=== PATIENT | female | born 1950 | race Caucasian/White ===

== ENCOUNTER 2018-04-22 21:02 | Inpatient (IN) ==
[2018-04-22] MEDS ORDERED: *HR* OxyCODONE Immed Rel 5 MG TABLET PO ONE (21:36)
--- NOTE | 2018-04-22 21:53 | Emergency Department Note ---
Disposition Clinical Impression: Tibia fracture, HLD (hyperlipidemia), DMII (diabetes mellitus, type 2) Disposition: Admitted As Inpatient Condition: Good Referrals: Markel Ordonez MD [Primary Care Provider] - Forms: ED Satisfaction Letter Time of Disposition: 22:00 Lower Extremity Injury HPI - General Chief Complaint: ED Extremity Injury, Lower Stated Complaint: Left lower leg pain onset Thursday Time Seen by Provider: 04/22/18 21:05 Source: patient, family, EMS Mode of arrival: wheelchair Limitations: altered mental status Nursing Notes Reviewed: Yes Vital Signs Reviewed: Yes - History of Present Illness HPI Narrative: 68-year-old female who presents to the emergency room who was recently hospitalized on Thursday through Thursday afternoon at [facility] after having tripped and fallen and fracturing her tibia who presents back to the emergency room unable to control pain and due to her altered mental status which is secondary to Alzheimer's dementia is unable to understand management and treatment of the fracture family's been unable to control her pain with the use of Tylenol as result she now presents back here to the emergency room nurse's notes have been reviewed with further assistance though the patient does not understand why she is here to Hospital asked if she knew where she had a immobilizer on her leg which was a long leg splint she said no she was unclear of what Lemuel occurred in the past couple of days Family tells me that since she has been home she has been crying out in pain she will not leave the long leg splint on and ambulate despite the splint she has no understanding for the use of medical assist devices such the walker wheelchair or crutches they state that she is unable to even truly bear weight on her good leg her balance is completely off as a result they have brought her to the emergency room for further evaluation and possible hospitalization Pt Subjective Complaint: leg injury Injury location: Left Leg (Tibia fracture) Onset (ago): day(s) (5) Mechanism of Injury: fall Context: fall Place: home Pain Severity: severe Improves with: nothing Worsens with: weight bearing, movement, palpation Associated symptoms: Reports: unable to bear weight - Related Data Home Medications Medication Instructions Recorded Confirmed metFORMIN [Glucophage] 500 mg PO DAILY 04/19/18 04/19/18 Previous Rx's Medication Instructions Recorded Aspirin 81 mg PO DAILY #90 tab.chew 09/19/16 Atorvastatin [Lipitor] 40 mg PO HS #30 tablet 06/02/16 Isosorbide MONOnitrate (24 HR) 60 mg PO DAILY #60 tab.er.24h 06/02/16 [Imdur] Nitroglycerin 0.4 mg SL Q5MIN PRN #15 tab.subl 06/02/16 hydrALAZINE [HydrALAZINE] 25 mg PO Q6HR #90 tablet 06/02/16 Clopidogrel [Plavix] 75 mg PO DAILY #30 tablet 10/16/17 Furosemide [Lasix] 20 mg PO DAILY #30 tablet 10/16/17 Metoprolol XL (24 HR) Succ [Toprol 25 mg PO DAILY #30 tab.er.24h 10/16/17 Xl] Levothyroxine [Synthroid] 50 mcg PO 0630 #60 tablet 01/15/18 Acetaminophen [Tylenol] 650 mg PO Q6HR PRN 7 Days #56 04/21/18 tablet Ascorbic Acid [Vitamin C] 500 mg PO TIDWM 7 Days #21 tablet 04/21/18 Cholecalciferol (D-3) [Vitamin D] 1,000 unit PO DAILY 7 Days #7 04/21/18 tablet Ferrous Sulfate 325 mg PO TIDWM 7 Days #21 tablet 04/21/18 Folic Acid 1 mg PO DAILY 7 Days #7 tablet 04/21/18 Lisinopril [Zestril] 20 mg PO DAILY 7 Days #7 tablet 04/21/18 Allergies Allergy/AdvReac Type Severity Reaction Status Date / Time No Known Allergies Allergy Verified 01/05/18 16:07 All systems ED: reviewed and negative except as stated. Review of Systems: As Per HPI Constitutional: Denies: fever Eyes: Denies: eye pain ENT ED: Denies: ear pain Cardiovascular: Denies: chest pain Respiratory: Denies: cough Gastrointestinal: Denies: abdominal pain Genitourinary: Denies: urgency, dysuria Musculoskeletal: Reports: arthralgia, myalgia. Denies: back pain, neck pain Integumentary: Denies: rash Neurological: Denies: headache Psychiatric: Denies: anxiety Endocrine: Denies: fatigue Hematological/Lymphatic: Denies: easy bleeding Allergic/Immunologic: Denies: facial swelling Past Medical History - Past Medical History Attestation: Yes The following information was validated with the patient. Source: unable to obtain, old records reviewed, obtained from family, nursing notes reviewed Medical history: Reports: aortic aneurysm, dementia, diabetes, GERD, hypertension, osteoporosis, other Surgical history: Reports: cholecystectomy Psychiatric history: Reports: no psych history - Social History Smoking Status: Never smoker Smokeless Tobacco Status: No Alcohol use: Reports: none Drug use: Reports: none Physical Exam - General Limitations: altered mental status General appearance: alert, in no apparent distress, anxious, other (Difficult to console difficult to get her to calm down and not move about the bed to play with the splint continually unwrapping the Jae wrap despite extensive tape job which was applied prior to arrival to the ER) - Head Head exam: atraumatic, normocephalic, normal inspection - Eye Eye exam: Present: normal appearance, PERRL, EOMI - ENT ENT exam: normal exam, normal oropharynx, mucous membranes moist, TM's normal bilaterally, normal external ear exam - Neck Neck exam: Present: normal inspection, full ROM, trachea midline - Chest Chest inspection: Present: normal inspection, symmetric chest wall rise - Respiratory Respiratory exam: Present: normal lung sounds bilaterally - Cardiovascular Cardiovascular exam: Present: regular rate, normal rhythm, normal heart sounds - Abdominal Exam Abdominal exam: Present: soft, Non-Tender, normal bowel sounds. Absent: mass, pulsatile mass - Expanded Upper Extremity Exam Shoulder exam: Present: normal inspection, full ROM Arm exam: Present: normal inspection, full ROM Elbow exam: Present: normal inspection, full ROM Forearm/Wrist exam: Present: normal inspection, full ROM Hand exam: Present: normal inspection, full ROM Vascular exam: Normal: capillary refill, radial pulse - Expanded Lower Extremity Exam Hip/Pelvis exam: Present: normal inspection, full ROM Upper leg exam: Present: normal inspection, full ROM Knee exam: Present: normal inspection, full ROM Lower leg exam: Present: tenderness, swelling, ecchymosis, other (Left lower extremity bruising ecchymosis noted about the knee painful with palpation about the knee strong dorsal pedal posterior tibial popliteal pulse sensory intact to light touch has a hard time understanding 2 point discrimination) Ankle exam: Present: normal inspection, full ROM Foot/toe exam: Present: normal inspection, full ROM Neurovascular/Tendon exam: Present: normal capillary refill, normal fine/light touch. Absent: pulse deficit Gait: unable to bear weight - Back Exam Back exam: Present: normal inspection, full ROM. Absent: muscle spasm Back 1 view image: 1 - Decubitus breakdown stage II - Neurological Exam Neurological exam: Present: alert, oriented X3, CN II-XII intact, normal gait - Psychiatric Psychiatric exam: Present: normal affect, normal mood - Skin Skin exam: Present: warm, dry, intact, normal color Course Course Narrative: Patient was immediately seen and examined patient is unable understand completely even what is going on she does not understand modalities to help assist she does not have an understanding of what is occurred to her even with that him to use assist device that she completely has no clear understanding this as result with her failing outpatient therapy with straight significantly benefit from a 2 day hospitalization with admission for then to a rehabilitation or a swing bed type facility till she has no understanding of or stabilization of the fracture of the knee may ultimately need surgical repair to be evaluated tomorrow by orthopedics as result patient will be admitted to the services of Dr. Ortiz as an inpatient needing at least a 2 day hospitalization with physical therapy occupational therapy orthopedics attempting to teach other modalities to help stabilize with most likely needing a swing bed jail placement - Reevaluation(s) Reevaluation #1: Patient have physical therapy occupational therapy ordered for her in addition she has orthopedic appointment tomorrow with [facility] we will have to call and confirm and her family physician is Dr. Ordonez not physician listed as of record Vital Signs Temperature 97.7 F 04/22/18 21:05 Pulse Rate 87 04/22/18 21:05 Respiratory Rate 16 04/22/18 21:05 Blood Pressure 173/99 04/22/18 21:05 O2 Sat by Pulse Oximetry 98 04/22/18 21:05 Temperature 97.7 F 04/22/18 21:05 Pulse Rate 87 04/22/18 21:05 Respiratory Rate 16 04/22/18 21:05 Blood Pressure 173/99 04/22/18 21:05 O2 Sat by Pulse Oximetry 98 04/22/18 21:05 Oxygen Delivery Oxygen Delivery Room Air Procedures - Orthopedic Splinting/Casting Injury #1 Side: left Lower Extremity Injury Location: knee Lower Extremity Immobilizer: knee immobilizer Additional Comments: Neurovascular intact after splint applied by nursing staff Extremity Injury, Lower - Differential Diagnosis Likely: fracture - Medical Records Medical records reviewed: Yes I reviewed the patient's medical records. - Lab Data Lab results reviewed: Yes I reviewed the patient's lab results. Result diagrams: 04/22/18 22:04 Lab Results 04/22/18 04/22/18 Range/Units 22:04 22:04 WBC 7.9 (4.3-11.1) K/mcL RBC 3.04 L (3.82-4.97) M/mcL Hgb 9.3 L (11.5-15.4) g/dL Hct 27.7 L (35.3-44.9) % MCV 91.1 (83.0-100.0) fL MCH 30.6 (28.0-33.3) pg MCHC 33.6 (31.6-35.5) g/dL RDW 15.1 H (11.5-14.5) % Plt Count 218 (140-400) K/mcL MPV 9.7 (9.4-12.4) fL Immature Gran % 0.4 (0-4) % Seg Neutrophils % 77.7 % Lymphocytes % 11.4 % Monocytes % 8.9 % Eosinophils % 1.3 % Basophils % 0.3 % Neutrophils # 6.1 (1.6-8.9) K/mcL Lymphocytes # 0.9 (0.6-4.6) K/mcL Monocytes # 0.7 (0.0-1.3) K/mcL Eosinophils # 0.1 (0.0-0.6) K/mcL Basophils # 0.0 (0.0-0.2) K/mcL PT 10.3 (9.4-12.1) Seconds INR 0.9
[2018-04-22 22:10] LABS: Basophils % 0.3 %; Eosinophils # 0.1 K/mcL (0.0-0.6); Eosinophils % 1.3 %; Hematocrit 27.7 % (35.3-44.9); Hemoglobin 9.3 g/dL (11.5-15.4); Immature Granulocytes % 0.4 % (0-4); Lymphocytes # 0.9 K/mcL (0.6-4.6); Lymphocytes % 11.4 %; Mean Corpuscular HGB Conc 33.6 g/dL (31.6-35.5); Mean Corpuscular Hemoglobin 30.6 pg (28.0-33.3); Mean Corpuscular Volume 91.1 fL (83.0-100.0); Mean Platelet Volume 9.7 fL (9.4-12.4); Monocytes # 0.7 K/mcL (0.0-1.3); Monocytes % 8.9 %; Neutrophils # 6.1 K/mcL (1.6-8.9); Platelet Count 218 K/mcL (140-400); Red Blood Count 3.04 M/mcL (3.82-4.97); Red Cell Distribution Width 15.1 % (11.5-14.5); Segmented Neutrophils % 77.7 %
[2018-04-22 22:17] LABS: INR 0.9; Prothrombin Time 10.3 Seconds (9.4-12.1)
[2018-04-22 22:20] LABS: Activated Partial Thrombo Time 33.5 Seconds (26.0-36.0)
[2018-04-22 22:27] LABS: Albumin 3.1 g/dL (3.5-5.7); Albumin/Globulin Ratio 1.1 (1.1-2.2); Bilirubin,Total 0.5 mg/dL (0.3-1.0); Calcium 8.6 mg/dL (8.6-10.3); Globulin 2.8 g/dL (2.4-3.5); Total Protein 5.9 g/dL (6.4-8.9)
[2018-04-22] MEDS ORDERED: Dextrose Gel 15 GM/37.5 ML TUBE PO PRN ×2 (23:52)
[2018-04-22] MEDS ORDERED: D5% in Water 1,000 ML IVC PRN (23:52)
[2018-04-22] MEDS ORDERED: Naloxone 0.4 MG/ML INJ IVP PRN (23:52)
[2018-04-22] MEDS ORDERED: *HR* Dextrose 50 % in Water (Syg) 50 ML SYRINGE IVP PRN (23:52)
[2018-04-22] MEDS ORDERED: Nitroglycerin 0.4 MG TAB.SUBL SL PRN (23:52)
[2018-04-23] MEDS: Acetaminophen 325 MG TABLET PO PRN ×2 (02:22→11:14)
[2018-04-23] MEDS: *HR* OxyCODONE Immed Rel 5 MG TABLET PO PRN ×3 (02:22→17:27)
[2018-04-23] MEDS: hydrALAZINE 25 MG TABLET PO SCH ×4 (02:25→17:26)
[2018-04-23] MEDS: ALPRAZolam 0.5 MG TABLET PO PRN ×4 (03:17→22:02)
[2018-04-23] MEDS: Levothyroxine 25 MCG TABLET PO SCH (06:42)
[2018-04-23] MEDS ORDERED: *HR* Metformin 500 MG TABLET PO SCH (08:00)
[2018-04-23] MEDS: Insulin LISPRO 300 UNITS/3 ML VIAL SQ SCH ×3 (08:51→17:50)
[2018-04-23] MEDS ORDERED: Metoprolol XL (24 HR) Succ 25 MG TAB.ER.24H PO SCH (09:00)
--- NOTE | 2018-04-23 11:03 | Internal Med History&Physical ---
Date of Encounter: 04/23/18 Internal Medicine - H&P: HPI History of present illness: Ms. Doss is a 68 year old female Past Med Surg Social Fam HX - Past Medical History Medical history: aortic aneurysm, dementia, diabetes, GERD, hypertension, osteoporosis, other Psychiatric history: no psych history - Past Surgical History Surgical History: cholecystectomy, coronary bypass (CABG) Additional surgical history: PT CONFUSED UNABLE TO GET CURRENT INFORMATION, INFO GATHERED FROM PAST MEDICAL RECORDS. - Social History Smoking Status: Never smoker Smokeless Tobacco Status: No Alcohol use: none Drug use: none Internal Medicine - H&P: Meds Aspirin 81 mg PO DAILY #90 tab.chew 06/02/16 [Rx] Atorvastatin [Lipitor] 40 mg PO HS #30 tablet 06/02/16 [Rx] Isosorbide MONOnitrate (24 HR) [Imdur] 60 mg PO DAILY #60 tab.er.24h 06/02/16 [ Rx] Nitroglycerin 0.4 mg SL Q5MIN PRN #15 tab.subl 06/02/16 [Rx] hydrALAZINE [HydrALAZINE] 25 mg PO Q6HR #90 tablet 06/02/16 [Rx] Clopidogrel [Plavix] 75 mg PO DAILY #30 tablet 10/16/17 [Rx] Furosemide [Lasix] 20 mg PO DAILY #30 tablet 10/16/17 [Rx] Metoprolol XL (24 HR) Succ [Toprol Xl] 25 mg PO DAILY #30 tab.er.24h 10/16/17 [ Rx] Levothyroxine [Synthroid] 50 mcg PO 0630 #60 tablet 01/15/18 [Rx] metFORMIN [Glucophage] 500 mg PO DAILY 04/19/18 [History] Acetaminophen [Tylenol] 650 mg PO Q6HR PRN 7 Days #56 tablet 04/21/18 [Rx] Ascorbic Acid [Vitamin C] 500 mg PO TIDWM 7 Days #21 tablet 04/21/18 [Rx] Cholecalciferol (D-3) [Vitamin D] 1,000 unit PO DAILY 7 Days #7 tablet 04/21/18 [Rx] Ferrous Sulfate 325 mg PO TIDWM 7 Days #21 tablet 04/21/18 [Rx] Folic Acid 1 mg PO DAILY 7 Days #7 tablet 04/21/18 [Rx] Lisinopril [Zestril] 20 mg PO DAILY 7 Days #7 tablet 04/21/18 [Rx] 3 Allergy/AdvReac Type Severity Reaction Status Date / Time No Known Allergies Allergy Verified 04/22/18 22:47 All Systems PM: A 10-system review of systems was performed and is negative for pertinent findings except as documented above in the HPI. - Constitutional Vitals: Temp Pulse Resp BP Pulse Ox 98.3 F 68 18 148/75 98 04/23/18 07:51 04/23/18 07:51 04/23/18 07:51 04/23/18 07:51 04/23/18 07:51 Internal Med - H&P Results - Labs CBC & Chem 7: 04/22/18 22:04 04/22/18 22:04
[2018-04-23] MEDS: Lisinopril 20 MG TABLET PO SCH (11:07)
[2018-04-23] MEDS: Isosorbide MONOnitrate (24 HR) 60 MG TAB.ER.24H PO SCH (11:07)
[2018-04-23] MEDS: Furosemide 20 MG TABLET PO SCH (11:07)
[2018-04-23] MEDS: Cholecalciferol (D-3) 1,000 UNIT TABLET PO SCH (11:08)
[2018-04-23] MEDS: Ascorbic Acid 500 MG TABLET PO SCH ×2 (11:08→18:37)
[2018-04-23] MEDS: Folic Acid 1 MG TABLET PO SCH (11:08)
[2018-04-23] MEDS: Aspirin 81 MG TAB.CHEW PO SCH (11:08)
--- NOTE | 2018-04-23 11:20 | Internal Med History&Physical ---
Date of Encounter: 04/23/18 Time of Encounter: 10:40 Assessment and Plan (1) Tibia/fibula fracture Current visit: Yes Status: Acute Ortho recommended nonoperative treatment with NWB status. Pain has not been adequately controlled. She will see Ortho today for probable cast placement since she has dementia and removed the initial splint/immobilizer. She will be given scheduled analgesics with prn medication available also. She will need an additional 2-3 days in the hospital for medical stabilization. Qualifiers: Encounter type: subsequent encounter Fracture type: closed Laterality: left Fracture healing: with routine healing Qualified Code(s): S82.202D - Unspecified fracture of shaft of left tibia, subsequent encounter for closed fracture with routine healing; S82.402D - Unspecified fracture of shaft of left fibula, subsequent encounter for closed fracture with routine healing (2) Dementia Current visit: No Status: Chronic Advanced with very poor insight and judgment. B12 level was low and TSH level elevated on last check. Will give B12 injection and start oral supplement. Recheck TSH in a.m. Qualifiers: Dementia type: Alzheimer's disease Alzheimer's disease onset: unspecified onset Dementia behavioral disturbance: without behavioral disturbance Qualified Code(s): G30.9 - Alzheimer's disease, unspecified; F02.80 - Dementia in other diseases classified elsewhere without behavioral disturbance (3) CKD (chronic kidney disease) Current visit: No Status: Chronic Creatinine has risen significantly from 1.79 on 04/18/2018 to 2.38 today. IV fluids will be started and medication adjustments will be made. Qualifiers: Chronic kidney disease stage: stage 3 (moderate) Qualified Code(s): N18.3 - Chronic kidney disease, stage 3 (moderate) (4) DMII (diabetes mellitus, type 2) Current visit: Yes Status: Chronic Hemoglobin A1c was elevated at 10.8% on 01/18/2018. Recheck in a.m. Discontinue Glucophage because of renal failure. Qualifiers: Diabetes mellitus roasterman insulin use: without custodial use Diabetes mellitus complication status: with kidney complications Diabetes mellitus complication detail: with chronic kidney disease Chronic kidney disease stage : stage 4 (severe) Qualified Code(s): E11.22 - Type 2 diabetes mellitus with diabetic chronic kidney disease; N18.4 - Chronic kidney disease, stage 4 (severe ) (5) Hypothyroidism Current visit: No Status: Chronic Recheck TSH in a.m. Qualifiers: Hypothyroidism type: unspecified Qualified Code(s): E03.9 - Hypothyroidism , unspecified (6) Anemia Current visit: No Status: Acute Possibly multifactorial etiology. Anemia testing 04/19/2018 showed iron 20, transferrin saturation 7%, transferrin 206, and B12 212. Folate was normal at 10.50 on 01/12/2018. Will give B12 injection start oral supplement. Check ferritin level in a.m. Continue DAPT since she had cardiac stents earlier this year. Qualifiers: Anemia type: unspecified type Qualified Code(s): D64.9 - Anemia, unspecified (7) Congestive heart failure (CHF) Current visit: No Status: Chronic BN peptide was 1319 on 01/18/2018. Recheck in a.m. and adjust medications as needed. Qualifiers: Heart failure type: combined systolic and diastolic Heart failure chronicity: acute on chronic Qualified Code(s): I50.43 - Acute on chronic combined systolic (congestive) and diastolic (congestive) heart failure (8) Hypertension Current visit: No Status: Chronic Blood pressure shows significant variability but frequently is inadequately controlled. Adjust medications and continue to monitor. Qualifiers: Hypertension type: essential hypertension Qualified Code(s): I10 - Essential (primary) hypertension Internal Medicine - H&P: HPI Chief complaint: Left leg pain Admitted From: Emergency Dept Plans for Post Hospital Care: Home History of present illness: Ms. Doss is a 68 year old female who was hospitalized at [facility] April 17- in observation status following a fall and sustaining a left tib-fib fracture. Orthopedics recommended nonoperative management and she was made NWB with a leg split placed. She was discharged home with Tylenol prescribed for pain. She could not function satisfactorily at home because of advanced dementia and limited available caregivers. Her pain was was significant and not adequately controlled at home which limited mobility. She was evaluated in emergency room and found to have ecchymosis and persistent slight swelling of the left knee. Hemoglobin had decreased slightly from [facility] discharge and creatinine had risen. She was admitted to Medr floor for ongoing care needs. She has dementia and cannot give any additional history. Review of available records show orthopedic history significant for osteoporosis but no documented gallops or other bone joint or muscle disorders. Past Med Surg Social Fam HX - Past Medical History Medical history: aortic aneurysm, dementia, diabetes, GERD, hypertension, osteoporosis, other Psychiatric history: no psych history - Past Surgical History Surgical History: cholecystectomy, coronary bypass (CABG) Additional surgical history: PT CONFUSED UNABLE TO GET CURRENT INFORMATION, INFO GATHERED FROM PAST MEDICAL RECORDS. - Social History Smoking Status: Never smoker Smokeless Tobacco Status: No Alcohol use: none Drug use: none Internal Medicine - H&P: Meds Aspirin 81 mg PO DAILY #90 tab.chew 06/02/16 [Rx] Atorvastatin [Lipitor] 40 mg PO HS #30 tablet 06/02/16 [Rx] Isosorbide MONOnitrate (24 HR) [Imdur] 60 mg PO DAILY #60 tab.er.24h 06/02/16 [ Rx] Nitroglycerin 0.4 mg SL Q5MIN PRN #15 tab.subl 06/02/16 [Rx] hydrALAZINE [HydrALAZINE] 25 mg PO Q6HR #90 tablet 06/02/16 [Rx] Clopidogrel [Plavix] 75 mg PO DAILY #30 tablet 10/16/17 [Rx] Furosemide [Lasix] 20 mg PO DAILY #30 tablet 10/16/17 [Rx] Metoprolol XL (24 HR) Succ [Toprol Xl] 25 mg PO DAILY #30 tab.er.24h 10/16/17 [ Rx] Levothyroxine [Synthroid] 50 mcg PO 0630 #60 tablet 01/15/18 [Rx] metFORMIN [Glucophage] 500 mg PO DAILY 04/19/18 [History] Acetaminophen [Tylenol] 650 mg PO Q6HR PRN 7 Days #56 tablet 04/21/18 [Rx] Ascorbic Acid [Vitamin C] 500 mg PO TIDWM 7 Days #21 tablet 04/21/18 [Rx] Cholecalciferol (D-3) [Vitamin D] 1,000 unit PO DAILY 7 Days #7 tablet 04/21/18 [Rx] Ferrous Sulfate 325 mg PO TIDWM 7 Days #21 tablet 04/21/18 [Rx] Folic Acid 1 mg PO DAILY 7 Days #7 tablet 04/21/18 [Rx] Lisinopril [Zestril] 20 mg PO DAILY 7 Days #7 tablet 04/21/18 [Rx] 3 Allergy/AdvReac Type Severity Reaction Status Date / Time No Known Allergies Allergy Verified 04/22/18 22:47 All Systems PM: A 10-system review of systems was performed and is negative for pertinent findings except as documented above in the HPI. Review of systems: Gen.: Her recorded weights are of questionable accuracy. On 10/16/2017 it was recorded at 68.3 kg. On 04/17/2018 it was recorded at 80.7 319 kg, 04/22/2018 recorded at 68.039 kg, and weight today 59.562 kilograms. Cardiovascular: She has history of hypertension and aortic aneurysm not otherwise specified. Echocardiogram September 2017 showed LVEF of 25-30% with previous LVEF 60% May 2016. Heart catheter 10/10/2017 showed severe 2 vessel disease with Lilia placed in the proximal diagonal 1 and mid LAD. The LMCA, circumflex, first marginal, RCA, and right PDA were angiographically free of disease. Follow-up echocardiogram 01/06/2018 showed LVEF slightly improved to 30-35%. There is no known history of DVT or pulmonary embolus. Respiratory: Patient denies being a smoker and no chronic lung disease is documented. GI: She has GERD. Chart reports history cholecystectomy. There is no history of disorders of liver or exocrine pancreas : She has chronic kidney disease that is now stage IV. She has right renal cyst per CT scan of 10/10/2017 which measures 7.2 cm. Neurologic: She has advanced dementia. No large distribution strokes were seen on CT scan 10/10/2017. There is no reported history of seizures. Endocrine: She has DM 2 duration unknown. She has hyperkalemia and hypothyroidism. Hematology/oncology: She has anemia with anemia testing 04/19/2018 showing iron 20, transferrin saturation 7%, transferrin 207, B12 212, and folate previously unremarkable at 10.5 on 01/12/2018. No history malignancies reported. Psychiatric: There is no history of anxiety depression or other mental health issues. [place] skeletal: As per history of present illness - Constitutional Vitals: Temp Pulse Resp BP Pulse Ox 98.3 F 68 18 148/75 98 04/23/18 07:51 04/23/18 07:51 04/23/18 07:51 04/23/18 07:51 04/23/18 07:51 Exam: Gen.: She is well-developed well-nourished female resting in bed who appears in significant pain on movement of her left leg. HEENT: Head is atraumatic and normocephalic. Eyes: EOMI. There is no scleral icterus. Mouth: Mucosa is moist. Neck: Supple and nontender. There is no thyromegaly or adenopathy noted. Heart: Regular without murmurs gallops or ectopics Lungs: No wheezes or crackles are heard. Abdomen: Soft and nontender. No masses or guarding are noted. Extremities: She has significant ecchymosis and slight swelling of the left knee area. There is significant pain on any movement of the leg. There is no cyanosis edema or clubbing noted. Dorsalis pedis and posterior tibial pulses are trace palpable bilaterally. Neurologic: Mental status: She is very talkative and can state her name but does not know her age, date of , location, length of stay, or past medical history. Cranial nerves: Smile is symmetric. Forehead wrinkles bilaterally. Tongue protrudes midline. EOMI. Motor: There is no pronator drift. Cerebellar : Finger to nose is intact bilaterally. Skin: Warm and dry Internal Med - H&P Results - Labs CBC & Chem 7: 04/22/18 22:04 04/22/18 22:04
[2018-04-23] MEDS ORDERED: *HR* FentaNYL PATCH 12 MCG PATCH TD SCH (13:00)
[2018-04-23] MEDS ORDERED: Cyanocobalamin (B-12) 1,000 MCG/ML VIAL IM ONE (17:15)
[2018-04-23] MEDS: Cyanocobalamin (B-12) 1,000 MCG/ML VIAL IM ONE ×2 (17:24→18:38)
[2018-04-23] MEDS: Acetaminophen 325 MG TABLET PO SCH (17:26)
[2018-04-24] MEDS: hydrALAZINE 25 MG TABLET PO SCH ×4 (01:26→17:43)
[2018-04-24] MEDS: Acetaminophen 325 MG TABLET PO SCH ×4 (01:26→17:42)
[2018-04-24] MEDS: Levothyroxine 25 MCG TABLET PO SCH (06:38)
[2018-04-24 07:40] LABS: Basophils % 0.5 %; Eosinophils # 0.2 K/mcL (0.0-0.6); Eosinophils % 2.4 %; Hematocrit 25.8 % (35.3-44.9); Hemoglobin 8.5 g/dL (11.5-15.4); Immature Granulocytes % 0.2 % (0-4); Lymphocytes % 14.7 %; Mean Corpuscular HGB Conc 32.9 g/dL (31.6-35.5); Mean Corpuscular Hemoglobin 30.8 pg (28.0-33.3); Mean Corpuscular Volume 93.5 fL (83.0-100.0); Mean Platelet Volume 10.1 fL (9.4-12.4); Monocytes # 0.7 K/mcL (0.0-1.3); Monocytes % 10.1 %; Neutrophils # 4.8 K/mcL (1.6-8.9); Platelet Count 235 K/mcL (140-400); Red Blood Count 2.76 M/mcL (3.82-4.97); Red Cell Distribution Width 15.8 % (11.5-14.5); Segmented Neutrophils % 72.1 %
[2018-04-24 08:01] LABS: Calcium 8.1 mg/dL (8.6-10.3); Potassium 4.6 mEq/L (3.5-5.1)
[2018-04-24] MEDS: *HR* OxyCODONE Immed Rel 5 MG TABLET PO PRN ×3 (09:15→21:33)
[2018-04-24] MEDS: Furosemide 20 MG TABLET PO SCH (10:11)
[2018-04-24] MEDS: Cholecalciferol (D-3) 1,000 UNIT TABLET PO SCH (10:11)
[2018-04-24] MEDS: Cyanocobalamin (B-12) 1,000 MCG TABLET PO SCH (10:11)
[2018-04-24] MEDS: Isosorbide MONOnitrate (24 HR) 60 MG TAB.ER.24H PO SCH (10:11)
[2018-04-24] MEDS: Aspirin 81 MG TAB.CHEW PO SCH (10:11)
[2018-04-24] MEDS: Lisinopril 20 MG TABLET PO SCH (10:11)
[2018-04-24] MEDS: Ascorbic Acid 500 MG TABLET PO SCH (10:12)
[2018-04-24] MEDS: Insulin LISPRO 300 UNITS/3 ML VIAL SQ SCH ×3 (10:12→17:44)
[2018-04-24] MEDS: Folic Acid 1 MG TABLET PO SCH (10:12)
[2018-04-24] MEDS: Metoprolol XL (24 HR) Succ 50 MG TAB.ER.24H PO SCH (10:12)
[2018-04-24 10:17] LABS: Thyroid Stimulating Hormone 5.634 mcIU/mL (0.340-5.600)
--- NOTE | 2018-04-24 15:15 | Internal Med Progress Note ---
Date of Encounter: 04/24/18 Time of Encounter: 15:05 - Assessment and plan (1) Tibia/fibula fracture Current Visit: Yes Status: Acute Assessment and plan: April 24. She now has a long leg cast in place. Continue NWB status and analgesic regimen. Qualifiers: Encounter type: subsequent encounter Fracture type: closed Laterality: left Fracture healing: with routine healing Qualified Code(s): S82.202D - Unspecified fracture of shaft of left tibia, subsequent encounter for closed fracture with routine healing; S82.402D - Unspecified fracture of shaft of left fibula, subsequent encounter for closed fracture with routine healing (2) Dementia Current Visit: No Status: Chronic Assessment and plan: April 24. TSH minimally elevated 5.634. Will increase Synthroid to 75 g daily Qualifiers: Dementia type: Alzheimer's disease Alzheimer's disease onset: unspecified onset Dementia behavioral disturbance: without behavioral disturbance Qualified Code(s): G30.9 - Alzheimer's disease, unspecified; F02.80 - Dementia in other diseases classified elsewhere without behavioral disturbance (3) CKD (chronic kidney disease) Current Visit: No Status: Chronic Assessment and plan: April 24. Creatinine has risen to 2.53 with estimated GFR 19. I explained to patient's daughter she was now in stage IV renal failure. Qualifiers: Chronic kidney disease stage: stage 3 (moderate) Qualified Code(s): N18.3 - Chronic kidney disease, stage 3 (moderate) (4) DMII (diabetes mellitus, type 2) Current Visit: Yes Status: Chronic Assessment and plan: April 24. Hemoglobin A1c pending. Blood sugars overall satisfactory. Continue Accu-Cheks with SSI. Qualifiers: Diabetes mellitus assisted insulin use: without assisted use Diabetes mellitus complication status: with kidney complications Diabetes mellitus complication detail: with chronic kidney disease Chronic kidney disease stage : stage 4 (severe) Qualified Code(s): E11.22 - Type 2 diabetes mellitus with diabetic chronic kidney disease; N18.4 - Chronic kidney disease, stage 4 (severe ) (5) Hypothyroidism Current Visit: No Status: Chronic Assessment and plan: April 24. Increase Synthroid as above. Qualifiers: Hypothyroidism type: unspecified Qualified Code(s): E03.9 - Hypothyroidism , unspecified (6) Anemia Current Visit: No Status: Acute Assessment and plan: April 24. Ferritin level 78. Continue ferrous sulfate with vitamin C. Qualifiers: Anemia type: unspecified type Qualified Code(s): D64.9 - Anemia, unspecified (7) Congestive heart failure (CHF) Current Visit: No Status: Chronic Assessment and plan: April 24. BN peptide improved to 643. Continue Lasix, hydralazine, isosorbide , Zestril, and Toprol. Qualifiers: Heart failure type: combined systolic and diastolic Heart failure chronicity: acute on chronic Qualified Code(s): I50.43 - Acute on chronic combined systolic (congestive) and diastolic (congestive) heart failure (8) Hypertension Current Visit: No Status: Chronic Assessment and plan: April 24. Continue Toprol, Zestril, and hydralazine. Qualifiers: Hypertension type: essential hypertension Qualified Code(s): I10 - Essential (primary) hypertension - Subjective Interval history: April 24. No new problems have arisen. - Constitutional Vitals: Temp Pulse Resp BP Pulse Ox 98.0 F 68 16 123/66 100 04/24/18 11:37 04/24/18 11:37 04/24/18 11:37 04/24/18 11:37 04/24/18 11:37 Exam: She is resting comfortably in bed and appears in no acute distress. She has not carry-on a logical conversation because of dementia. I discussed at length with her daughter several aspects of her care Internal Medicine: Result - Labs CBC & Chem 7: 04/24/18 07:22 04/24/18 07:22 Labs: Short CBC 04/24/18 Range/Units 07:22 WBC 6.7 (4.3-11.1) K/mcL Hgb 8.5 L (11.5-15.4) g/dL Hct 25.8 L (35.3-44.9) % Plt Count 235 (140-400) K/mcL Neutrophils # 4.8 (1.6-8.9) K/mcL BMP 04/24/18 07:22 Sodium 135 L Potassium 4.6 Chloride 103 Carbon Dioxide 24 BUN 51 H Creatinine 2.53 H Glucose 144 H Calcium 8.1 L - ABG Interpretation ABG results: PT/INR, D-dimer PT 10.3 Seconds (9.4-12.1) 04/22/18 22:04 Consult Discharge Plan - Plan Referrals: Markel Ordonez MD [Primary Care Provider] - 1 week
[2018-04-24] MEDS: ALPRAZolam 0.5 MG TABLET PO PRN (22:42)
[2018-04-25] MEDS: hydrALAZINE 25 MG TABLET PO SCH ×3 (00:16→11:32)
[2018-04-25] MEDS: Acetaminophen 325 MG TABLET PO SCH ×3 (00:16→11:32)
[2018-04-25] MEDS: *HR* OxyCODONE Immed Rel 5 MG TABLET PO PRN ×2 (03:20→08:46)
[2018-04-25] MEDS: ALPRAZolam 0.5 MG TABLET PO PRN ×2 (03:41→08:46)
[2018-04-25 06:18] VITALS: BP 145/69
[2018-04-25] MEDS: Folic Acid 1 MG TABLET PO SCH (07:57)
[2018-04-25] MEDS: Isosorbide MONOnitrate (24 HR) 60 MG TAB.ER.24H PO SCH (07:57)
[2018-04-25] MEDS: Metoprolol XL (24 HR) Succ 50 MG TAB.ER.24H PO SCH (07:57)
[2018-04-25] MEDS: Aspirin 81 MG TAB.CHEW PO SCH (07:57)
[2018-04-25] MEDS: Furosemide 20 MG TABLET PO SCH (07:57)
[2018-04-25] MEDS: Cholecalciferol (D-3) 1,000 UNIT TABLET PO SCH (07:57)
[2018-04-25] MEDS: Lisinopril 20 MG TABLET PO SCH (07:58)
[2018-04-25] MEDS: Cyanocobalamin (B-12) 1,000 MCG TABLET PO SCH (07:58)
[2018-04-25] MEDS: Ascorbic Acid 500 MG TABLET PO SCH (07:58)
[2018-04-25] MEDS: Insulin LISPRO 300 UNITS/3 ML VIAL SQ SCH ×2 (07:59→11:36)
[2018-04-25 09:54] LABS: Estimated Average Glucose 146 mg/dl; Hemoglobin A1C 6.7 %
--- NOTE | 2018-04-25 11:41 | Discharge Summary ---
Date of Encounter: 04/25/18 Time of Encounter: 11:25 - Discharge Diagnosis (1) Tibia/fibula fracture Priority: Primary Status: Acute Qualifiers: Encounter type: subsequent encounter Fracture type: closed Laterality: left Fracture healing: with routine healing Qualified Code(s): S82.202D - Unspecified fracture of shaft of left tibia, subsequent encounter for closed fracture with routine healing; S82.402D - Unspecified fracture of shaft of left fibula, subsequent encounter for closed fracture with routine healing (2) Dementia Priority: Secondary Status: Chronic Qualifiers: Dementia type: Alzheimer's disease Alzheimer's disease onset: unspecified onset Dementia behavioral disturbance: without behavioral disturbance Qualified Code(s): G30.9 - Alzheimer's disease, unspecified; F02.80 - Dementia in other diseases classified elsewhere without behavioral disturbance (3) CKD (chronic kidney disease) Priority: Secondary Status: Chronic Qualifiers: Chronic kidney disease stage: stage 4 (severe) Qualified Code(s): N18.4 - Chronic kidney disease, stage 4 (severe) (4) DMII (diabetes mellitus, type 2) Priority: Secondary Status: Chronic Qualifiers: Diabetes mellitus oil heaterman insulin use: without custodial use Diabetes mellitus complication status: with kidney complications Diabetes mellitus complication detail: with chronic kidney disease Chronic kidney disease stage : stage 4 (severe) Qualified Code(s): E11.22 - Type 2 diabetes mellitus with diabetic chronic kidney disease; N18.4 - Chronic kidney disease, stage 4 (severe ) (5) Hypothyroidism Priority: Secondary Status: Chronic Qualifiers: Hypothyroidism type: unspecified Qualified Code(s): E03.9 - Hypothyroidism , unspecified (6) Anemia Priority: Secondary Status: Acute Qualifiers: Anemia type: unspecified type Qualified Code(s): D64.9 - Anemia, unspecified (7) Congestive heart failure (CHF) Priority: Secondary Status: Chronic Qualifiers: Heart failure type: combined systolic and diastolic Heart failure chronicity: acute on chronic Qualified Code(s): I50.43 - Acute on chronic combined systolic (congestive) and diastolic (congestive) heart failure (8) Hypertension Priority: Secondary Status: Chronic Qualifiers: Hypertension type: essential hypertension Qualified Code(s): I10 - Essential (primary) hypertension Hospital course: Ms. Doss is a 68 year old female was hospitalized at [facility] April 17 in observation status following a fall and sustaining a left tib-fib fracture. Orthopedics recommended nonoperative management and she was made NWB with a leg split placed. She was discharged home with Tylenol prescribed for pain. She could not function satisfactorily at home because of advanced dementia and limited available caregivers. Her pain was was significant and not adequately controlled at home which limited mobility. She was evaluated in emergency room and found to have ecchymosis and persistent slight swelling of the left knee. Hemoglobin had decreased slightly from [facility] discharge and creatinine had risen. She was admitted to [facility] for ongoing care needs. Initial orders were written by the emergency room physician. I saw her on April 23 and performed the history and physical. She was given Duragesic patch , scheduled Tylenol, and additional analgesics were ordered prn. She had a long leg cast placed by Ortho on April 23. She will remain NWB status. She had PT and OT evaluations with ongoing intervention. This will continue in swing bed. TSH returned slightly elevated 5.634. Her Synthroid dose was increased to 75 g daily. She was started on B12 supplement for 12 level 212 on 04/19/2018. Creatinine samantha slightly to 2.53 on April 24 with estimated GFR 19. I discussed with patient's daughter she was now chronic kidney disease stage IV. Hemoglobin A1c returned satisfactory at 6.7%. Glucophage was discontinued because of renal failure. BN peptide returned improved at 643. She will continue Toprol, lisinopril, and isosorbide. On April 25 arrangements were complete for her to be discharged to swing bed for ongoing therapy. - Time Spent with Patient Total time spent providing and/or coordinating discharge services: - Discharge Medications Prescriptions: Fentanyl [Duragesic] 25 mcg TD Q72H 30 Days #10 patch.[id number] Home Medications: Aspirin 81 mg PO DAILY #90 tab.chew 06/02/16 [Rx] Atorvastatin [Lipitor] 40 mg PO HS #30 tablet 06/02/16 [Rx] Isosorbide MONOnitrate (24 HR) [Imdur] 60 mg PO DAILY #60 tab.er.24h 06/02/16 [ Rx] Nitroglycerin 0.4 mg SL Q5MIN PRN #15 tab.subl 06/02/16 [Rx] hydrALAZINE [HydrALAZINE] 25 mg PO Q6HR #90 tablet 06/02/16 [Rx] Clopidogrel [Plavix] 75 mg PO DAILY #30 tablet 10/16/17 [Rx] Metoprolol XL (24 HR) Succ [Toprol Xl] 25 mg PO DAILY #30 tab.er.24h 10/16/17 [ Rx] Cholecalciferol (D-3) [Vitamin D] 1,000 unit PO DAILY 7 Days #7 tablet 04/21/18 [Rx] Folic Acid 1 mg PO DAILY 7 Days #7 tablet 04/21/18 [Rx] Lisinopril [Zestril] 20 mg PO DAILY 7 Days #7 tablet 04/21/18 [Rx] Acetaminophen [Tylenol] 650 mg PO Q6HR tablet 04/25/18 [Rx] Ascorbic Acid [Vitamin C] 500 mg PO DAILY tablet 04/25/18 [Rx] Cyanocobalamin (B-12) [Vitamin B12] 1,000 mcg PO DAILY tablet 04/25/18 [Rx] Fentanyl [Duragesic] 25 mcg TD Q72H 30 Days #10 patch.td72 04/25/18 [Rx] Ferrous Sulfate 325 mg PO DAILY tablet 04/25/18 [Rx] Levothyroxine [Synthroid] 75 mcg PO 0630 tablet 04/25/18 [Rx] Allergies/Adverse Reactions: 3 Allergy/AdvReac Type Severity Reaction Status Date / Time No Known Allergies Allergy Verified 04/22/18 22:47 Date of admission: 04/22/18 22:32 Primary care physician: Markel Ordonez MD Consults: 04/23/18 00:38 Consult to Gaming Dealer [CONS] Routine Reason for Consult: home health at discharge after swing - Constitutional Vitals: Temp Pulse Resp BP Pulse Ox 98.3 F 66 16 145/69 99 04/25/18 06:16 04/25/18 06:16 04/25/18 06:16 04/25/18 06:16 04/25/18 06:16 - Patient Status Disposition: Transfer Hospital Swing Bed Condition: Good - Discharge Instructions - Diet and Activity Activity: as per physical therapy Diet: diabetic diet - VTE Documentation of Mechanical Device: Graduated compression elastic hosiery
== END 2018-04-25 13:05 | disposition other institution (70) | DRG 559 ==
LOC: EMEROOPIK 21:02 → INPPIK 22:32
PROVIDERS: ADMIT Internal Medicine; ATTEND Internal Medicine

== ENCOUNTER 2018-04-25 13:27 | Inpatient (IN) ==
[2018-04-25] MEDS ORDERED: Nitroglycerin 0.4 MG TAB.SUBL SL PRN (13:41)
[2018-04-25] MEDS ORDERED: D5% in Water 1,000 ML IVC PRN (14:01)
[2018-04-25] MEDS ORDERED: *HR* Dextrose 50 % in Water (Vial) 50 ML VIAL IVP PRN (14:05)
[2018-04-25] MEDS ORDERED: Dextrose Gel 15 GM/37.5 ML TUBE PO PRN (14:06)
[2018-04-25] MEDS ORDERED: Furosemide 20 MG TABLET PO PRN (14:08)
[2018-04-25] MEDS ORDERED: Naloxone 0.4 MG/ML INJ IVP PRN (14:10)
[2018-04-25] MEDS ORDERED: *HR* Dextrose 50 % in Water (Syg) 50 ML SYRINGE IVP PRN (14:30)
[2018-04-25] MEDS: *HR* OxyCODONE Immed Rel 5 MG TABLET PO PRN ×2 (15:32→21:29)
[2018-04-25] MEDS: ALPRAZolam 0.5 MG TABLET PO PRN ×2 (15:33→20:27)
[2018-04-25] MEDS ORDERED: ALPRAZolam 0.5 MG TABLET PO SCH (16:00)
[2018-04-25] MEDS: Insulin LISPRO 300 UNITS/3 ML VIAL SQ SCH (16:53)
[2018-04-25] MEDS: hydrALAZINE 25 MG TABLET PO SCH (17:10)
[2018-04-25] MEDS: Acetaminophen 325 MG TABLET PO SCH (17:10)
[2018-04-25] MEDS ORDERED: MOM Conc 10 ML UD.LIQ PO ONE (22:31)
[2018-04-25] MEDS ORDERED: ALPRAZolam 1 MG TABLET PO ONE (22:36)
[2018-04-26] MEDS: Acetaminophen 325 MG TABLET PO SCH ×4 (01:25→16:29)
[2018-04-26] MEDS: hydrALAZINE 25 MG TABLET PO SCH ×4 (01:26→16:30)
[2018-04-26] MEDS: *HR* OxyCODONE Immed Rel 5 MG TABLET PO PRN ×2 (06:43→16:29)
[2018-04-26] MEDS: ALPRAZolam 0.5 MG TABLET PO PRN ×3 (06:43→16:30)
[2018-04-26] MEDS: Ascorbic Acid 500 MG TABLET PO SCH (08:03)
[2018-04-26] MEDS: Lisinopril 20 MG TABLET PO SCH (08:03)
[2018-04-26] MEDS: Metoprolol XL (24 HR) Succ 25 MG TAB.ER.24H PO SCH (08:03)
[2018-04-26] MEDS: Isosorbide MONOnitrate (24 HR) 60 MG TAB.ER.24H PO SCH (08:03)
[2018-04-26] MEDS: Cyanocobalamin (B-12) 1,000 MCG TABLET PO SCH (08:03)
[2018-04-26] MEDS: Aspirin 81 MG TAB.CHEW PO SCH (08:04)
[2018-04-26] MEDS: Folic Acid 1 MG TABLET PO SCH (08:04)
[2018-04-26] MEDS: Cholecalciferol (D-3) 1,000 UNIT TABLET PO SCH (08:04)
[2018-04-26] MEDS: *HR* FentaNYL PATCH 25 MCG PATCH TD SCH (08:04)
[2018-04-26] MEDS: Insulin LISPRO 300 UNITS/3 ML VIAL SQ SCH ×3 (08:05→16:22)
--- NOTE | 2018-04-26 18:22 | Internal Med Progress Note ---
Date of Encounter: 04/26/18 Time of Encounter: 18:08 - Assessment and plan (1) Tibia/fibula fracture Current Visit: No Status: Acute Assessment and plan: April 26. Continue NWB status, analgesics, and therapy. Because of limited therapy participation ability she will likely be transitioned to a local SNF. Qualifiers: Encounter type: subsequent encounter Fracture type: closed Laterality: left Fracture healing: with routine healing Qualified Code(s): S82.202D - Unspecified fracture of shaft of left tibia, subsequent encounter for closed fracture with routine healing; S82.402D - Unspecified fracture of shaft of left fibula, subsequent encounter for closed fracture with routine healing (2) Dementia Current Visit: No Status: Chronic Assessment and plan: April 26. Advanced. She was treated for low B12 and elevated TSH during acute care. Continue present regimen and symptom management. Qualifiers: Dementia type: Alzheimer's disease Alzheimer's disease onset: unspecified onset Dementia behavioral disturbance: without behavioral disturbance Qualified Code(s): G30.9 - Alzheimer's disease, unspecified; F02.80 - Dementia in other diseases classified elsewhere without behavioral disturbance (3) CKD (chronic kidney disease) Current Visit: No Status: Chronic Assessment and plan: April 26. Monitor renal indices periodically. Qualifiers: Chronic kidney disease stage: stage 4 (severe) Qualified Code(s): N18.4 - Chronic kidney disease, stage 4 (severe) (4) DMII (diabetes mellitus, type 2) Current Visit: No Status: Chronic Assessment and plan: April 26. Hemoglobin A1c acceptable at 6.7%. Blood sugars overall acceptable. Continue Accu-Cheks with SSI. Qualifiers: Diabetes mellitus prison insulin use: without prison use Diabetes mellitus complication status: with kidney complications Diabetes mellitus complication detail: with chronic kidney disease Chronic kidney disease stage : stage 4 (severe) Qualified Code(s): E11.22 - Type 2 diabetes mellitus with diabetic chronic kidney disease; N18.4 - Chronic kidney disease, stage 4 (severe ) (5) Hypothyroidism Current Visit: No Status: Chronic Assessment and plan: April 26. TSH was elevated at 5.634. Synthroid dose now increased to 75 g daily. Qualifiers: Hypothyroidism type: unspecified Qualified Code(s): E03.9 - Hypothyroidism , unspecified (6) Congestive heart failure (CHF) Current Visit: No Status: Chronic Assessment and plan: April 26. Continue Lasix, hydralazine, isosorbide, Zestril, and Toprol. Qualifiers: Heart failure type: combined systolic and diastolic Heart failure chronicity: acute on chronic Qualified Code(s): I50.43 - Acute on chronic combined systolic (congestive) and diastolic (congestive) heart failure (7) Anemia Current Visit: No Status: Acute Assessment and plan: April 26. Continue ferrous sulfate with vitamin C. Qualifiers: Anemia type: unspecified type Qualified Code(s): D64.9 - Anemia, unspecified (8) Hypertension Current Visit: No Status: Chronic Assessment and plan: April 26. Continue Toprol, Zestril, and hydralazine. Qualifiers: Hypertension type: essential hypertension Qualified Code(s): I10 - Essential (primary) hypertension - Subjective Interval history: April 26. She was hospitalized in acute-care April 22- after presenting from home to ER with uncontrolled pain from tib-fib fracture. Because of dementia a long leg cast was applied by the orthopedist to facilitate immobilization. Synthroid dose was increased because of elevated TSH. B12 supplement was started for B12 level of 212. Creatinine samantha slightly indicating chronic kidney disease stage IV was progressing. PT and OT interventions were ordered but patient was unable to participate meaningfully because of advanced dementia. - Constitutional Vitals: Temp Pulse Resp BP Pulse Ox 98.3 F 73 16 141/59 96 04/26/18 08:12 04/26/18 08:12 04/26/18 08:12 04/26/18 08:12 04/26/18 08:19 Exam: She is lying in bed and appears in minimal distress. Abdomen shows bowel sounds present. It is soft and nontender without palpable masses or guarding. I reviewed her medications and lab results. - VTE Documentation of Mechanical Device: Graduated compression elastic hosiery Consult Discharge Plan - Plan Referrals: Markel Ordonez MD [Primary Care Provider] - 1 week
[2018-04-26] MEDS ORDERED: Lactulose Oral Soln 20 GM/30 ML UDC PO ONE (18:29)
[2018-04-27] MEDS: ALPRAZolam 0.5 MG TABLET PO PRN ×3 (03:20→20:55)
[2018-04-27] MEDS: *HR* OxyCODONE Immed Rel 5 MG TABLET PO PRN ×3 (03:20→20:54)
[2018-04-27] MEDS: hydrALAZINE 25 MG TABLET PO SCH ×4 (06:50→17:12)
[2018-04-27] MEDS: Acetaminophen 325 MG TABLET PO SCH ×4 (06:50→17:11)
[2018-04-27 07:06] LABS: Basophils % 0.6 %; Eosinophils # 0.2 K/mcL (0.0-0.6); Eosinophils % 4.7 %; Hematocrit 25.3 % (35.3-44.9); Immature Granulocytes % 0.4 % (0-4); Lymphocytes # 1.2 K/mcL (0.6-4.6); Lymphocytes % 24.8 %; Mean Corpuscular HGB Conc 31.6 g/dL (31.6-35.5); Mean Corpuscular Hemoglobin 30.5 pg (28.0-33.3); Mean Corpuscular Volume 96.6 fL (83.0-100.0); Mean Platelet Volume 9.6 fL (9.4-12.4); Monocytes # 0.5 K/mcL (0.0-1.3); Monocytes % 11.5 %; Neutrophils # 2.7 K/mcL (1.6-8.9); Platelet Count 240 K/mcL (140-400); Red Blood Count 2.62 M/mcL (3.82-4.97); Red Cell Distribution Width 15.9 % (11.5-14.5)
[2018-04-27 07:21] LABS: Calcium 8.3 mg/dL (8.6-10.3); Potassium 4.8 mEq/L (3.5-5.1)
[2018-04-27] MEDS: Folic Acid 1 MG TABLET PO SCH (10:59)
[2018-04-27] MEDS: Isosorbide MONOnitrate (24 HR) 60 MG TAB.ER.24H PO SCH (10:59)
[2018-04-27] MEDS: Ascorbic Acid 500 MG TABLET PO SCH (10:59)
[2018-04-27] MEDS: Lisinopril 20 MG TABLET PO SCH (11:00)
[2018-04-27] MEDS: Cholecalciferol (D-3) 1,000 UNIT TABLET PO SCH (11:00)
[2018-04-27] MEDS: Cyanocobalamin (B-12) 1,000 MCG TABLET PO SCH (11:00)
[2018-04-27] MEDS: Aspirin 81 MG TAB.CHEW PO SCH (11:00)
[2018-04-27] MEDS: Metoprolol XL (24 HR) Succ 25 MG TAB.ER.24H PO SCH (11:00)
[2018-04-27] MEDS: Insulin LISPRO 300 UNITS/3 ML VIAL SQ SCH ×4 (11:00→17:17)
[2018-04-27] MEDS ORDERED: MOM Conc 10 ML UD.LIQ PO SCH (21:00)
[2018-04-28] MEDS: hydrALAZINE 25 MG TABLET PO SCH ×4 (00:46→18:30)
[2018-04-28] MEDS: ALPRAZolam 0.5 MG TABLET PO PRN ×2 (00:46→09:50)
[2018-04-28] MEDS: Acetaminophen 325 MG TABLET PO SCH ×4 (00:46→18:30)
[2018-04-28] MEDS: *HR* OxyCODONE Immed Rel 5 MG TABLET PO PRN ×2 (03:01→19:54)
[2018-04-28] MEDS: Insulin LISPRO 300 UNITS/3 ML VIAL SQ SCH ×3 (07:30→16:41)
[2018-04-28] MEDS: Isosorbide MONOnitrate (24 HR) 60 MG TAB.ER.24H PO SCH (09:50)
[2018-04-28] MEDS: Cholecalciferol (D-3) 1,000 UNIT TABLET PO SCH (09:50)
[2018-04-28] MEDS: Ascorbic Acid 500 MG TABLET PO SCH (09:50)
[2018-04-28] MEDS: Metoprolol XL (24 HR) Succ 25 MG TAB.ER.24H PO SCH (09:51)
[2018-04-28] MEDS: Cyanocobalamin (B-12) 1,000 MCG TABLET PO SCH (09:51)
[2018-04-28] MEDS: Folic Acid 1 MG TABLET PO SCH (09:51)
[2018-04-28] MEDS: Lisinopril 20 MG TABLET PO SCH (09:51)
[2018-04-28] MEDS: Aspirin 81 MG TAB.CHEW PO SCH (09:51)
[2018-04-28 11:50] LABS: Basophils % 0.8 %; Eosinophils # 0.2 K/mcL (0.0-0.6); Eosinophils % 4.7 %; Hematocrit 22.8 % (35.3-44.9); Hemoglobin 7.4 g/dL (11.5-15.4); Lymphocytes % 28.5 %; Mean Corpuscular HGB Conc 32.5 g/dL (31.6-35.5); Mean Corpuscular Hemoglobin 31.4 pg (28.0-33.3); Mean Corpuscular Volume 96.6 fL (83.0-100.0); Mean Platelet Volume 9.9 fL (9.4-12.4); Monocytes # 0.4 K/mcL (0.0-1.3); Monocytes % 12.3 %; Neutrophils # 1.9 K/mcL (1.6-8.9); Platelet Count 262 K/mcL (140-400); Red Blood Count 2.36 M/mcL (3.82-4.97); Red Cell Distribution Width 15.6 % (11.5-14.5); Segmented Neutrophils % 53.7 %
[2018-04-28 12:07] LABS: Calcium 8.3 mg/dL (8.6-10.3); Potassium 4.9 mEq/L (3.5-5.1)
[2018-04-29] MEDS: Acetaminophen 325 MG TABLET PO SCH ×2 (00:30→05:51)
[2018-04-29] MEDS: hydrALAZINE 25 MG TABLET PO SCH ×2 (00:30→05:51)
[2018-04-29] MEDS: *HR* OxyCODONE Immed Rel 5 MG TABLET PO PRN (04:07)
[2018-04-29 05:36] VITALS: BP 142/71
[2018-04-29] MEDS: Aspirin 81 MG TAB.CHEW PO SCH (08:18)
[2018-04-29] MEDS: Ascorbic Acid 500 MG TABLET PO SCH (08:18)
[2018-04-29] MEDS: Folic Acid 1 MG TABLET PO SCH (08:19)
[2018-04-29] MEDS: *HR* FentaNYL PATCH 25 MCG PATCH TD SCH (08:19)
[2018-04-29] MEDS: Cyanocobalamin (B-12) 1,000 MCG TABLET PO SCH (08:19)
[2018-04-29] MEDS: Isosorbide MONOnitrate (24 HR) 60 MG TAB.ER.24H PO SCH (08:19)
[2018-04-29] MEDS: Lisinopril 20 MG TABLET PO SCH (08:19)
[2018-04-29] MEDS: Cholecalciferol (D-3) 1,000 UNIT TABLET PO SCH (08:19)
[2018-04-29] MEDS: Metoprolol XL (24 HR) Succ 25 MG TAB.ER.24H PO SCH (08:19)
--- NOTE | 2018-04-29 10:50 | Discharge Summary ---
Date of Encounter: 04/29/18 Time of Encounter: 10:38 - Discharge Diagnosis (1) Tibia/fibula fracture Priority: Primary Status: Acute Qualifiers: Encounter type: subsequent encounter Fracture type: closed Laterality: left Fracture healing: with routine healing Qualified Code(s): S82.202D - Unspecified fracture of shaft of left tibia, subsequent encounter for closed fracture with routine healing; S82.402D - Unspecified fracture of shaft of left fibula, subsequent encounter for closed fracture with routine healing (2) Dementia Priority: Secondary Status: Chronic Qualifiers: Dementia type: Alzheimer's disease Alzheimer's disease onset: unspecified onset Dementia behavioral disturbance: without behavioral disturbance Qualified Code(s): G30.9 - Alzheimer's disease, unspecified; F02.80 - Dementia in other diseases classified elsewhere without behavioral disturbance (3) CKD (chronic kidney disease) Priority: Secondary Status: Chronic Qualifiers: Chronic kidney disease stage: stage 4 (severe) Qualified Code(s): N18.4 - Chronic kidney disease, stage 4 (severe) (4) DMII (diabetes mellitus, type 2) Priority: Secondary Status: Chronic Qualifiers: Diabetes mellitus computer programmer chief insulin use: without fdc use Diabetes mellitus complication status: with kidney complications Diabetes mellitus complication detail: with chronic kidney disease Chronic kidney disease stage : stage 4 (severe) Qualified Code(s): E11.22 - Type 2 diabetes mellitus with diabetic chronic kidney disease; N18.4 - Chronic kidney disease, stage 4 (severe ) (5) Hypothyroidism Priority: Secondary Status: Chronic Qualifiers: Hypothyroidism type: unspecified Qualified Code(s): E03.9 - Hypothyroidism , unspecified (6) Congestive heart failure (CHF) Priority: Secondary Status: Chronic Qualifiers: Heart failure type: combined systolic and diastolic Heart failure chronicity: acute on chronic Qualified Code(s): I50.43 - Acute on chronic combined systolic (congestive) and diastolic (congestive) heart failure (7) Anemia Priority: Secondary Status: Acute Qualifiers: Anemia type: unspecified type Qualified Code(s): D64.9 - Anemia, unspecified (8) Hypertension Priority: Secondary Status: Chronic Qualifiers: Hypertension type: essential hypertension Qualified Code(s): I10 - Essential (primary) hypertension Hospital course: Ms. Doss is a 68 year old female who was hospitalized in acute-care April 22 after presenting from home to ER with uncontrolled pain from tib-fib fracture. Because of dementia a long leg cast was applied by the orthopedist to facilitate immobilization. Synthroid dose was increased because of elevated TSH. B12 supplement was started for B12 level of 212. Creatinine samantha slightly indicating chronic kidney disease stage IV was progressing. PT and OT interventions were ordered but patient was unable to participate meaningfully because of advanced dementia. Therapy efforts were briefly continued in swing bed but patient could not comprehend adequately because of advanced dementia. Social service intervention facilitated completion of arrangements for transfer to [facility] on April 29 for ongoing care needs. She will follow with her PCP Dr. Ordonez there. - Time Spent with Patient Total time spent providing and/or coordinating discharge services: - Discharge Medications Prescriptions: ALPRAZolam [Xanax 0.5 MG Tablet] 0.5 mg PO Q4HR PRN 14 Days #56 tablet PRN Reason: Anxiety OxyCODONE Immed Rel [Roxicodone 5 MG] 5 mg PO Q6HR PRN 14 Days #56 tablet PRN Reason: Severe Pain Home Medications: Isosorbide MONOnitrate (24 HR) [Imdur] 60 mg PO DAILY #60 tab.er.24h 06/02/16 [ Rx] Nitroglycerin 0.4 mg SL Q5MIN PRN #15 tab.subl 06/02/16 [Rx] hydrALAZINE [HydrALAZINE] 25 mg PO Q6HR #90 tablet 06/02/16 [Rx] Clopidogrel [Plavix] 75 mg PO DAILY #30 tablet 10/16/17 [Rx] Cholecalciferol (D-3) [Vitamin D] 1,000 unit PO DAILY 7 Days #7 tablet 04/21/18 [Rx] Folic Acid 1 mg PO DAILY 7 Days #7 tablet 04/21/18 [Rx] Lisinopril [Zestril] 20 mg PO DAILY 7 Days #7 tablet 04/21/18 [Rx] Acetaminophen [Tylenol] 650 mg PO Q6HR tablet 04/25/18 [Rx] Ascorbic Acid [Vitamin C] 500 mg PO DAILY tablet 04/25/18 [Rx] Cyanocobalamin (B-12) [Vitamin B12] 1,000 mcg PO DAILY tablet 04/25/18 [Rx] Ferrous Sulfate 325 mg PO DAILY tablet 04/25/18 [Rx] Levothyroxine [Synthroid] 75 mcg PO 0630 tablet 04/25/18 [Rx] Metoprolol XL (24 HR) Succ [Toprol Xl] 25 mg PO DAILY 04/25/18 [History] ALPRAZolam [Xanax 0.5 MG Tablet] 0.5 mg PO Q4HR PRN 14 Days #56 tablet 04/29/18 [Rx] MOM Conc [MILK OF MAGNESIA conc] 10 ml PO Q48H ud.liq 04/29/18 [Rx] OxyCODONE Immed Rel [Roxicodone 5 MG] 5 mg PO Q6HR PRN 14 Days #56 tablet [Rx] Quetiapine Fumarate [Seroquel] 25 mg PO BID tablet 04/29/18 [Rx] Allergies/Adverse Reactions: 3 Allergy/AdvReac Type Severity Reaction Status Date / Time No Known Allergies Allergy Verified 04/22/18 22:47 Date of admission: 04/25/18 13:52 Primary care physician: Markel Ordonez MD Consults: 04/25/18 13:59 Consult to Physical Therapy [CONS] Routine Comment: Evaluate, develop and implement POC Reason for Consult: weakness, fx tibia Does patient have active BEDREST order?: No Is patient medically & hemodynamically stable?: Yes 04/25/18 14:00 Consult to Occupational Therapy [CONS] Routine Comment: Evaluate, develop and implement POC Reason for Consult: weakness, s/p fx tibia Does patient have active BEDREST order?: No Is patient medically & hemodynamically stable?: Yes 04/27/18 02:28 Consult to Construction Producer [CONS] Routine Reason for SW Consult: discharge planning - Constitutional Vitals: Temp Pulse Resp BP Pulse Ox 98.3 F 75 16 142/71 97 04/29/18 05:22 04/29/18 05:22 04/29/18 05:22 04/29/18 05:22 04/29/18 05:22 - Patient Status Disposition: Transfer SNF - Discharge Instructions Follow Up With: Markel Ordonez MD [Primary Care Provider] - 1 week - Diet and Activity Activity: as per physical therapy Diet: diabetic diet - VTE Documentation of Mechanical Device: Graduated compression elastic hosiery
--- NOTE | 2018-04-29 11:57 | Physician Discharge Referral ---
ExtendedCare Referral Info Transfer To: [facility] Provider in Charge: Angel Provider in Charge after Transfer: PCP (José Luis) - Diagnosis (1) Tibia/fibula fracture Priority: Primary Status: Acute (2) Dementia Priority: Secondary Status: Chronic (3) CKD (chronic kidney disease) Priority: Secondary Status: Chronic (4) DMII (diabetes mellitus, type 2) Priority: Secondary Status: Chronic (5) Hypothyroidism Priority: Secondary Status: Chronic (6) Congestive heart failure (CHF) Priority: Secondary Status: Chronic (7) Anemia Priority: Secondary Status: Acute (8) Hypertension Priority: Secondary Status: Chronic Prognosis: Fair Aware of Diagnosis: Family - Transfer Medications Prescriptions: ALPRAZolam [Xanax 0.5 MG Tablet] 0.5 mg PO Q4HR PRN 14 Days #56 tablet PRN Reason: Anxiety OxyCODONE Immed Rel [Roxicodone 5 MG] 5 mg PO Q6HR PRN 14 Days #56 tablet PRN Reason: Severe Pain Home Medications: Isosorbide MONOnitrate (24 HR) [Imdur] 60 mg PO DAILY #60 tab.er.24h 06/02/16 [ Rx] Nitroglycerin 0.4 mg SL Q5MIN PRN #15 tab.subl 06/02/16 [Rx] hydrALAZINE [HydrALAZINE] 25 mg PO Q6HR #90 tablet 06/02/16 [Rx] Clopidogrel [Plavix] 75 mg PO DAILY #30 tablet 10/16/17 [Rx] Cholecalciferol (D-3) [Vitamin D] 1,000 unit PO DAILY 7 Days #7 tablet 04/21/18 [Rx] Folic Acid 1 mg PO DAILY 7 Days #7 tablet 04/21/18 [Rx] Lisinopril [Zestril] 20 mg PO DAILY 7 Days #7 tablet 04/21/18 [Rx] Acetaminophen [Tylenol] 650 mg PO Q6HR tablet 04/25/18 [Rx] Ascorbic Acid [Vitamin C] 500 mg PO DAILY tablet 04/25/18 [Rx] Cyanocobalamin (B-12) [Vitamin B12] 1,000 mcg PO DAILY tablet 04/25/18 [Rx] Ferrous Sulfate 325 mg PO DAILY tablet 04/25/18 [Rx] Levothyroxine [Synthroid] 75 mcg PO 0630 tablet 04/25/18 [Rx] Metoprolol XL (24 HR) Succ [Toprol Xl] 25 mg PO DAILY 04/25/18 [History] ALPRAZolam [Xanax 0.5 MG Tablet] 0.5 mg PO Q4HR PRN 14 Days #56 tablet 04/29/18 [Rx] MOM Conc [MILK OF MAGNESIA conc] 10 ml PO Q48H ud.liq 04/29/18 [Rx] OxyCODONE Immed Rel [Roxicodone 5 MG] 5 mg PO Q6HR PRN 14 Days #56 tablet [Rx] Quetiapine Fumarate [Seroquel] 25 mg PO BID tablet 04/29/18 [Rx] Allergies/Adverse Reactions: 3 Allergy/AdvReac Type Severity Reaction Status Date / Time No Known Allergies Allergy Verified 04/22/18 22:47 - Respiratory Orders Smoking Cessation: Smoking cessation has been advised. For more information, call the [place] Tobacco Quit Line at 1-757-LZJM-NOW. - Lab Orders Lab Orders: Other (include drug levels w/frequency) (CBC with differential, BMP , BNP peptide 05/03/2018) - Rehabiliation Orders Rehab Potential: Fair Rehab Orders: Evaluation for Physical Therapy, Evaluation for Occupational Therapy - Diet Orders No Concentrated Sweets CERTIFICATION: I certify that the transfer of the above named patient to an Extended Care Facility is necessary for the continuing treatment of the diagnosis listed. The above information is true and accurate reflection of patient's current condition. Confidential - Redisclosure prohibited without a patient's written consent.
== END 2018-04-29 12:15 | DRG 559 ==
LOC: INPPIK 13:52
PROVIDERS: ADMIT Internal Medicine; ATTEND Internal Medicine